=== PATIENT | female | born 1990 | race Two or more races ===

== ENCOUNTER 2023-07-27 13:33 | Day surgery (SDC) | payer OTHER ==
[~2023-07-27] VITALS: Ht 170.2 cm; Wt 61.2 kg
== END 2023-07-28 00:15 | disposition home or self-care (01) ==
LOC: CIR.AMB 13:33 → SEC-K 13:33 → CIR.AMB 13:33 → O/R 13:33 → ER 13:33 → SEC-K 14:06 → O/R 14:06 → CIR.AMB 07-28 00:15
PROVIDERS: ATTEND Emergency Medicine
DX: O03.4 Incomplete spontaneous abortion without complication (principal); O72.2 Delayed and secondary postpartum hemorrhage; Z88.8 Allergy status to other drugs, medicaments and biological substances; Z20.822 Contact with and (suspected) exposure to COVID-19

== ENCOUNTER 2024-08-01 14:37 | Inpatient (IN) | payer OTHER ==
[~2024-08-01] VITALS: Ht 170.2 cm; Wt 73.0 kg
[2024-08-01 08:30] VITALS: BP 90/55
[2024-08-01 16:09] VITALS: BP 97/65
[2024-08-01] MEDS ORDERED: PRENATAL TABLE1 EAC1 PO (17:37)
[2024-08-01 17:44] LABS: HEMATOCRIT 33.7 % (36.0-45.00); HEMOGLOBIN 11.3 g/dL (12.0-15.00); MEAN CELL VOLUME 85.6 fL (80.00-100.00); MEAN CORPUSCULAR HEMOGLOBIN 28.6 pg (27.00-32.0); MEAN CORPUSCULAR HGB CONC 33.5 g/dl (32.0-36.0); PLATELET COUNT 375 K/uL (150-450); RED BLOOD COUNT 3.94 M/uL (4.00-6.00); RED CELL DISTRIBUTION WIDTH 14.3 % (11.5-14.5)
[2024-08-01 18:07] LABS: INR 0.94; PARTIAL THROMBOPLASTIN TIME 25.4 SECONDS (22.0-34.0); PROTHROMBIN TIME 10.3 SECONDS (9.0-11.5)
[2024-08-01 18:10] LABS: ALBUMIN 3.1 gm/dL (3.4-5.0); BILIRUBIN TOTAL 0.45 mg/dL (0.3-1.2); CREATININE SERUM 0.53 mg/dL (0.55-1.02); GFR 132.85; GLOBULINA 3.4 G/DL (2.4-3.5); POTASSIUM 4.33 mEq/L (3.5-5.1); TOTAL PROTEIN 6.5 gm/dL (6.4-8.2)
[2024-08-01] MEDS ORDERED: RINGERS SOLUTION,LACTATED 1,000 ML IV SCH (18:15)
[2024-08-01] MEDS ORDERED: CEFOXITIN SODIUM 2,000 MG VIAL IV SCH (18:15)
[2024-08-01 20:30] VITALS: BP 90/55
[2024-08-01] MEDS ORDERED: ACETAMINOPHEN 500 MG GEL..CAP PO PRN (21:30)
[2024-08-01 23:31] VITALS: BP 92/60
[2024-08-02 03:05] VITALS: BP 92/60
[2024-08-02] MEDS ORDERED: MAGNESIUM SULFATE IN WATER 500 ML IV SCH (03:30)
[2024-08-02 06:17] VITALS: BP 90/60; O2SAT 98
[2024-08-02] MEDS ORDERED: POVIDONE-IODINE 118 ML BOTT TOP ONE (11:30)
[2024-08-02 16:17] VITALS: BP 103/74
[2024-08-02] MEDS ORDERED: ONDANSETRON HCL 2 MG/ML VIAL IV STA (20:17)
[2024-08-02] MEDS ORDERED: ACETAMINOPHEN 500 MG GEL..CAP PO STA (20:18)
[2024-08-03 01:24] VITALS: BP 90/55
[2024-08-03 08:41] VITALS: BP 104/60
== END 2024-08-03 10:14 | disposition home or self-care (01) | DRG 819 ==
LOC: LDR 14:37 → O/R 08-02 11:15 → OB/GYN 08-02 11:17
PROVIDERS: ADMIT Obstetrics & Gynecology Maternal & Fetal Medicine; ATTEND Obstetrics & Gynecology Maternal & Fetal Medicine
PROC: 4A1HXCZ Monitoring of Products of Conception, Cardiac Rate, External Approach (ICD-10-PCS; 2024-08-01)
PROC: 0UVC7ZZ Restriction of Cervix, Via Natural or Artificial Opening (ICD-10-PCS; principal; 2024-08-02 11:30)
DX: O34.32 Maternal care for cervical incompetence, second trimester (principal); Z20.822 Contact with and (suspected) exposure to COVID-19; Z3A.17 17 weeks gestation of pregnancy

== ENCOUNTER 2024-10-11 11:37 | Outpatient (CLI) | payer OTHER ==
[~2024-10-11 11:37] MED LIST: PRENATAL TABLE1 EAC1 PO
== END 2024-10-11 12:15 | disposition home or self-care (01) ==
LOC: NST 11:37
PROVIDERS: ATTEND Obstetrics & Gynecology Maternal & Fetal Medicine
DX: Z34.82 Encounter for supervision of other normal pregnancy, second trimester (principal)

== ENCOUNTER 2024-12-24 13:30 | Inpatient (IN) | payer OTHER ==
[~2024-12-24] VITALS: Ht 170.2 cm; Wt 3.2 kg
[2025-01-04 07:24] VITALS: BP 103/69
[2025-01-04] MEDS ORDERED: RINGERS SOLUTION,LACTATED 1,000 ML IV SCH ×2 (07:45→16:30)
[2025-01-04] MEDS ORDERED: MORPHINE SULFATE 4 MG/ML CARTRIDGE IV ONE (07:45)
[2025-01-04] MEDS ORDERED: ONDANSETRON HCL 2 MG/ML VIAL IV NR (07:45)
[2025-01-04] MEDS ORDERED: VALACYCLOVIR1000 MG (07:49)
[2025-01-04 08:15] LABS: HEMATOCRIT 37.7 % (36.0-45.00); HEMOGLOBIN 12.6 g/dL (12.0-15.00); MEAN CELL VOLUME 87.6 fL (80.00-100.00); MEAN CORPUSCULAR HEMOGLOBIN 29.3 pg (27.00-32.0); MEAN CORPUSCULAR HGB CONC 33.4 g/dl (32.0-36.0); PLATELET COUNT 307 K/uL (150-450)
[2025-01-04 08:18] LABS: RED CELL DISTRIBUTION WIDTH 17.4 % (11.5-14.5)
[2025-01-04] MEDS ORDERED: OXYTOCIN 20 UNITS/500ML RL PIGGYBAG IV ONE (08:19)
[2025-01-04] MEDS ORDERED: OXYTOCIN 500 ML IV ONE (08:30)
[2025-01-04 08:39] LABS: ALBUMIN 2.7 gm/dL (3.4-5.0); BILIRUBIN TOTAL 0.57 mg/dL (0.3-1.2); CALCIUM 8.5 mg/dL (8.5-10.1); CREATININE SERUM 0.53 mg/dL (0.55-1.02); GFR 132.05; GLOBULINA 3.8 G/DL (2.4-3.5); TOTAL PROTEIN 6.5 gm/dL (6.4-8.2)
[2025-01-04 08:44] LABS: INR < 0.93; PARTIAL THROMBOPLASTIN TIME 24.5 SECONDS (22.0-34.0); PROTHROMBIN TIME 10.2 SECONDS (9.0-11.5)
[2025-01-04 11:35] VITALS: BP 106/64
[2025-01-04] MEDS ORDERED: ERYTHROMYCIN BASE OPHT 1GM EACH TUBE OP ONE (13:32)
[2025-01-04] MEDS ORDERED: OXYTOCIN 10 UNITS/ML VIAL ONE ×2 (13:32→17:44)
[2025-01-04] MEDS ORDERED: CEFAZOLIN SODIUM 1,000 MG VIAL ONE (14:04)
[2025-01-04] MEDS ORDERED: MORPHINE SULFATE 4 MG/ML VIAL IV ONE ×2 (16:10→16:40)
[2025-01-04] MEDS ORDERED: MORPHINE SULFATE 4 MG/ML CARTRIDGE IV PRN (16:30)
[2025-01-04] MEDS ORDERED: OXYTOCIN 1,000 ML IV ONE (16:30)
[2025-01-04] MEDS ORDERED: GABAPENTIN 300 MG CAPSULE PO SCH (17:00)
[2025-01-04] MEDS ORDERED: SIMETHICONE 125 MG CAPSULE PO SCH (17:00)
[2025-01-04] MEDS ORDERED: KETOROLAC TROMETHAMINE 30 MG VIAL ONE (17:43)
[2025-01-04] MEDS ORDERED: KETOROLAC TROMETHAMINE 30 MG VIAL IV SCH (18:00)
[2025-01-04] MEDS ORDERED: ONDANSETRON HCL 2 MG/ML VIAL IV SCH (18:00)
[2025-01-04] MEDS ORDERED: ACETAMINOPHEN 500 MG GEL..CAP PO SCH (18:00)
[2025-01-04 18:30] VITALS: BP 109/68
[2025-01-04 23:36] VITALS: BP 100/60
[2025-01-05 04:46] LABS: HEMATOCRIT 30.4 % (36.0-45.00); HEMOGLOBIN 10.3 g/dL (12.0-15.00); MEAN CELL VOLUME 86.9 fL (80.00-100.00); MEAN CORPUSCULAR HEMOGLOBIN 29.6 pg (27.00-32.0); PLATELET COUNT 244 K/uL (150-450); RED CELL DISTRIBUTION WIDTH 17.6 % (11.5-14.5)
[2025-01-05 05:00] VITALS: BP 90/60
[2025-01-05 08:00] VITALS: BP 102/70
[2025-01-05] MEDS ORDERED: KETOROLAC TROMETHAMINE 10 MG TABLET PO SCH (08:00)
[2025-01-05] MEDS ORDERED: OxyCODONE HCL 5 MG TABLET (ROXICODONE) PO PRN (08:00)
[2025-01-05] MEDS ORDERED: DOCUSATE SODIUM 100MG CAP PO SCH (09:00)
[2025-01-05 16:32] VITALS: BP 109/77
[2025-01-05 22:27] VITALS: BP 95/64
[2025-01-06 02:07] VITALS: BP 96/60
[2025-01-06 06:37] VITALS: BP 103/70
[2025-01-06 09:00] VITALS: BP 107/74
== END 2025-01-06 12:02 | disposition home or self-care (01) | DRG 788 ==
LOC: LDR 01-04 07:42 → O/R 01-04 15:03 → OB/GYN 01-04 15:20 → LDR 01-06 13:30
PROVIDERS: Obstetrics & Gynecology; ADMIT Obstetrics & Gynecology Maternal & Fetal Medicine; ATTEND Obstetrics & Gynecology Maternal & Fetal Medicine
PROC: 4A1HXCZ Monitoring of Products of Conception, Cardiac Rate, External Approach (ICD-10-PCS; 2025-01-04)
PROC: 10D00Z1 Extraction of Products of Conception, Low, Open Approach (ICD-10-PCS; principal; 2025-01-04 14:00)
DX: O62.0 Primary inadequate contractions (principal); Z3A.39 39 weeks gestation of pregnancy; Z37.0 Single live birth

== ENCOUNTER 2025-01-02 10:05 | Outpatient (CLI) | payer OTHER | END 2025-01-02 11:11 | disposition home or self-care (01) | LOC: NST 10:05 | PROVIDERS: ATTEND Obstetrics & Gynecology Maternal & Fetal Medicine | DX: Z34.83 Encounter for supervision of other normal pregnancy, third trimester (principal) ==